=== PATIENT | male | born 1955 | race Two or more races ===

== ENCOUNTER 2016-12-20 12:45 | Emergency (ER) | payer OTHER ==
[~2016-12-20] VITALS: Ht 172.7 cm; Wt 73.9 kg
[2016-12-20 13:04] VITALS: BP 134/87
[2016-12-20] MEDS ORDERED: predniSONE 20 MG TABLET ONE (13:46)
[2016-12-20] MEDS ORDERED: ALBUTEROL FS 2.5 MG/3 ML VIAL.NEB ONE (13:51)
[2016-12-20] MEDS ORDERED: IPRATROPIUM NEB FS 0.5 MG/2.5 ML AMPUL.NEB ONE (13:51)
[2016-12-20] MEDS ORDERED: IPRATROPIUM NEB FS 0.5 MG/2.5 ML AMPUL.NEB NEB ONE (14:00)
[2016-12-20] MEDS ORDERED: predniSONE 20 MG TABLET PO ONE (14:00)
[2016-12-20] MEDS ORDERED: ALBUTEROL FS 2.5 MG/3 ML VIAL.NEB NEB ONE (14:00)
== END 2016-12-20 14:13 | disposition home or self-care (01) ==
LOC: ER 12:46
DX: J11.1 Influenza due to unidentified influenza virus with other respiratory manifestations (principal)
CPT/HCPCS: A4606; Z7610

== ENCOUNTER 2022-09-11 12:08 | Outpatient (CLI) | payer MEDICARE, BC ==
[2022-09-19] MEDS ORDERED: PANT40TA2 PO (07:36)
[2022-09-19] MEDS ORDERED: HYDR-3972 PO (07:36)
== END 2022-09-11 23:59 | disposition home or self-care (01) ==
LOC: LAB 12:08
PROVIDERS: ATTEND Specialist
DX: Z01.812 Encounter for preprocedural laboratory examination (principal); Z20.822 Contact with and (suspected) exposure to COVID-19
CPT/HCPCS: U0003; C9803

== ENCOUNTER 2022-09-17 04:58 | Inpatient (IN) | payer MEDICARE, BC ==
[~2022-09-17] VITALS: Ht 172.7 cm; Wt 72.6 kg
[2022-09-17 05:15] VITALS: BP 119/75
--- NOTE | 2022-09-17 06:00 | NUR ---
RN DAYSURGERY NOTE PATIENT CAME FROM HOME WITH FAMILY, PATIENT IS A/O X 4, ABLE TO MAKE NEEDS KNOWN. ON RA, TOLERATING WELL. PROCEDURE CONSENT, BLOOD TRANSFUSION CONSENT, AND ANESTHESIA CONSENT SIGNED AND WITNESSED. SURGICAL CHECKLIST DONE. RFA 20 G IV ACCESS ESTABLISHED. BELONGINGS INVENTORIED. VITAL SIGNS: BP 119/75, HR 49, RESP 18, TEMP 97.4, O2 100%. PATIENT NOT IN ANY APPARENT DISTRESS. PATIENT WITH OR NURSE, ANESTHESIOLOGIST AT BEDSIDE. PATIENT TAKEN DOWN TO OR. Addendum: 09/17/22 at 0613 by COURTNEY MYERS RN CONFIRMED HOME MEDS WITH PATIENT, PER PATIENT HE DOES NOT TAKE ANY MEDS NOW. COVID VACCINES X 3, AND FLU SHOT WAS RECEIVED JUL 2022.
[2022-09-17] MEDS ORDERED: POLYMYXIN B SULFATE 500,000 UNITS ONE (06:13)
[2022-09-17] MEDS ORDERED: BUPIVACAINE 0.5 % PF 150 MG/30 ML VIAL ONE (06:13)
[2022-09-17] MEDS ORDERED: HYDROMORPHONE INJ 2 MG/ML DISP.SYRIN ONE (06:27)
[2022-09-17] MEDS ORDERED: FENTANYL PF 100MCG/2ML AMPUL ONE (06:27)
[2022-09-17] MEDS ORDERED: MIDAZOLAM HCL 2 MG/2ML VIAL ONE (06:28)
[2022-09-17] MEDS ORDERED: SUCCINYLCHOLINE CHLORIDE 20 MG/ML VIAL ONE (06:29)
[2022-09-17] MEDS ORDERED: CLINDAMYCIN IV RTU IN D5W 0 ML ONE (07:01)
[2022-09-17] MEDS ORDERED: CLINDAMYCIN IV RTU IN D5W 50 ML ONE (07:04)
[2022-09-17] MEDS ORDERED: TRANEXAMIC ACID 3,000 MG in SODIUM CHLORIDE IRRIG SOLUTION 70 ML IR ONE (07:15)
--- NOTE | 2022-09-17 07:15 | NUR ---
RN OPENING NOTE PATIENT WENT FOR SURGERY, PATIENT IS NOT IN HIS ROOM, RECEIVED REPORT FROM [employer] FIELD DATA COLLECTOR NURSE.
[2022-09-17] MEDS ORDERED: MEPERIDINE25 MG SYR 25 MG/ML VIAL ONE (09:23)
[2022-09-17] MEDS ORDERED: ACETAMINOPHEN 325 MG TABLET PO PRN (09:30)
[2022-09-17] MEDS ORDERED: BISACODYL SUPP (10 MG) 10 MG/SUPP.RECT SUPP.RECT RC PRN (09:30)
[2022-09-17] MEDS ORDERED: DOCUSATE SODIUM 250 MG CAPSULE PO PRN (09:30)
[2022-09-17] MEDS ORDERED: HYDROCODONE/APAP 5/325MG TABLET PO PRN (09:30)
[2022-09-17] MEDS ORDERED: SENNOSIDES 8.6 MG TABLET PO PRN (09:30)
[2022-09-17] MEDS ORDERED: CLONIDINE HCL 0.1 MG TABLET PO PRN (10:30)
[2022-09-17] MEDS ORDERED: MAGNESIUM HYDROXIDE 30 ML UDC PO PRN (10:30)
[2022-09-17] MEDS ORDERED: diphenhydrAMINE HCL 25 MG CAPSULE PO PRN (10:30)
[2022-09-17] MEDS ORDERED: DRONABINOL (2.5 MG) 2.5 MG CAPSULE PO ONE (10:41)
--- NOTE | 2022-09-17 10:45 | NUR ---
RN NOTE PATIENT IS IN ROOM RESTING, BACK FROM SURGERY (RIGHT KNEE ARTHROPLASTY WITH DOCTOR AIDAN). V/S TAKEN AND STABLE. PATIENT TOLERATED PROCEDURE WELL. WILL CONTINUE TO MONITOR.
[2022-09-17 11:00] VITALS: BP 123/67
[2022-09-17] MEDS ORDERED: MAG HYDROX/AL HYDROX/SIMETH 30 ML UDC PO PRN (11:00)
[2022-09-17] MEDS: MORPHINE SULFATE INJ 4 MG/ML DISP.SYRIN IM PRN ×2 (11:59→16:32)
[2022-09-17] MEDS: ONDANSETRON HCL/PF 4 MG/2 ML VIAL IV PRN (12:06)
[2022-09-17] MEDS ORDERED: ASPI-1169 PO (12:09)
[2022-09-17] MEDS ORDERED: METO-357 PO (12:09)
[2022-09-17] MEDS ORDERED: DICL100G34 TD (12:10)
[2022-09-17] MEDS: IV D5/0.45 NACL 500 ML IV PRN ×3 (12:27→22:27)
[2022-09-17] MEDS: HYDROCODONE/APAP 10/325MG TABLET PO PRN ×2 (14:11→18:07)
[2022-09-17 16:00] VITALS: BP 115/74
[2022-09-17] MEDS: ANCEF 1 GM/50 ML D5W IV SCH ×2 (16:31)
[2022-09-17] MEDS: DOCUSATE SODIUM 100 MG CAPSULE PO SCH (16:31)
[2022-09-17] MEDS ORDERED: DICLOFENAC TOPICAL 100 GM GEL..GM. TP SCH (17:00)
--- NOTE | 2022-09-17 18:52 | NUR ---
RN CLOSING NOTE PATIENT AWAKE IN BED RESTING A/O X 4. 4/10 PAIN LEVEL, PAIN MEDICATION GIVEN DURING THE SHIFT. ON 3L OXYGEN VIA NC, NO DISTRESS OR SHORTNESS OF BREATH NOTED. IV ACCESS RFA #20G, INTACT, PATENT AND FLUSHING WELL. PATIENT HAVE A ESPARZA CATHETER, IN PLACE AND DRAINING WELL, OUTPUT 1000ML. SCHEDULE MEDICATIONS ADMINISTERED. FALL AND SAFETY MEASURES IN PLACE, BED ALARM ON, BED IN LOW AND LOCK POSITION, CALL LIGHT AND TABLE WITHIN EASY REACH, SIDE RAILS X2. WILL ENDORSE TO MOLTEN IRON POURER.
[2022-09-17 20:00] VITALS: BP 125/76
--- NOTE | 2022-09-17 20:13 | NUR ---
RN OPENING NOTE PATIENT AWAKE IN BED RESTING A/O X 4. ON 2L OXYGEN VIA NC, NO DISTRESS OR SHORTNESS OF BREATH NOTED. IV ACCESS RFA #20G, INTACT, PATENT AND FLUSHING WELL. PATIENT HAVE A ESPARZA CATHETER, IN PLACE AND DRAINING WELL. NO COMPLAINS OF PAIN AT THIS TIME. FALL AND SAFETY MEASURES IN PLACE, BED ALARM ON, BED IN LOW AND LOCK POSITION, CALL LIGHT AND TABLE WITHIN EASY REACH, SIDE RAILS X2. WILL CONTINUE TO MONITOR.
[2022-09-17] MEDS: TAMSULOSIN 0.4 MG CAP.SR.24H PO SCH (21:23)
[2022-09-17] MEDS: FAMOTIDINE (20 MG) 20 MG TABLET PO SCH (21:24)
[2022-09-17] MEDS: DRONABINOL (2.5 MG) 2.5 MG CAPSULE PO SCH (21:24)
[2022-09-17] MEDS: ZOLPIDEM TARTRATE 5 MG TABLET PO PRN (22:17)
--- NOTE | 2022-09-17 22:18 | NUR ---
RN NOTES - PATIENT REQUESTED SLEEPING PILL. GIVEN AMBIEN 5MG PRN FOR SLEEP. PROVIDED WARM COMFORTABLE ENVIRONMENT.
[2022-09-18] MEDS: ANCEF 1 GM/50 ML D5W IV SCH ×2 (00:23)
[2022-09-18] MEDS: HYDROCODONE/APAP 10/325MG TABLET PO PRN ×2 (04:02→16:35)
[2022-09-18 06:03] LABS: BASOPHILS % (AUTO) 0.1 % (0.0-2.0); EOSINOPHILS % (AUTO) 0.3 % (0.0-6.0); HEMATOCRIT 35 % (39-51); HEMOGLOBIN 11.2 g/dL (13.5-17.5); LYMPHOCYTES # (AUTO) 0.9 K/uL (0.8-4.8); LYMPHOCYTES % (AUTO) 5.4 % (20.0-44.0); MEAN CORPUSCULAR HGB CONC 32 g/dl (31.0-36.0); MEAN CORPUSCULAR VOLUME 79 fL (80-96); MONOCYTES # (AUTO) 1.4 K/uL (0.1-1.30); MONOCYTES % (AUTO) 8.7 % (2.0-12.0); NEUTROPHILS # (AUTO) 13.7 K/uL (1.8-8.9); NEUTROPHILS % (AUTO) 85.5 % (43.0-81.0); PLATELET COUNT (AUTO) 149 K/uL (150-450); RED BLOOD CELL COUNT(AUTO) 4.39 MIL/uL (4.5-6.0)
[2022-09-18] MEDS: MORPHINE SULFATE INJ 4 MG/ML DISP.SYRIN IM PRN ×2 (06:16→11:48)
--- NOTE | 2022-09-18 06:23 | NUR ---
RN NOTES - PATIENT IS COMPLAINING OF PAIN AT RIGHT LEG, RATED PAIN 8/10. GIVEN MORPHINE 4MG PRN ORDERED. FOLLOWED UP PHYSICAL THERAPIST, THE PATIENT WANTS TO GET OUT OF BED TO AMBULATE EARLY POSSIBLE. KEPT COMFORTABLE.
[2022-09-18 06:34] LABS: ALBUMIN 2.8 g/dL (3.4-5.0); BILIRUBIN,TOTAL 0.8 mg/dL (0.2-1.0); CALCIUM, SERUM 8.4 mg/dL (8.5-10.1); CREATININE 0.9 mg/dL (0.6-1.3); POTASSIUM 3.7 mmol/L (3.5-5.1); TOTAL PROTEIN, SERUM 6.2 g/dL (6.4-8.2)
--- NOTE | 2022-09-18 07:50 | NUR ---
RN CLOSING NOTE PATIENT AWAKE IN BED RESTING A/O X 4. 7/10 PAIN LEVEL, PAIN MEDICATION GIVEN DURING THE SHIFT. ON ROOM AIR, SATURATING WELL. NO DISTRESS OR SHORTNESS OF BREATH NOTED. IV ACCESS RFA #20G, INTACT, PATENT AND FLUSHING WELL. PATIENT HAVE A ESPARZA CATHETER, IN PLACE AND DRAINING WELL, OUTPUT 1300ML. SCHEDULE MEDICATIONS ADMINISTERED. FALL AND SAFETY MEASURES IN PLACE, BED ALARM ON, BED IN LOW AND LOCK POSITION, CALL LIGHT AND TABLE WITHIN EASY REACH, SIDE RAILS X2. WILL ENDORSE TO DAY SHIFT.
[2022-09-18 08:00] VITALS: BP 130/75
[2022-09-18] MEDS: HYDROMORPHONE 1 MG/1 ML DISP.SYRIN IM/IV/SC PRN ×2 (08:33→12:03)
[2022-09-18] MEDS ORDERED: ASPIRIN 81 MG TAB.CHEW PO SCH (09:00)
[2022-09-18] MEDS ORDERED: ASPIRIN 325 MG TABLET PO SCH (09:00)
[2022-09-18] MEDS: METOPROLOL SUCCINATE 50 MG TAB.SR.24H PO SCH (10:18)
[2022-09-18] MEDS: FAMOTIDINE (20 MG) 20 MG TABLET PO SCH ×2 (10:18→21:28)
[2022-09-18] MEDS: DOCUSATE SODIUM 100 MG CAPSULE PO SCH ×2 (10:19→16:35)
[2022-09-18] MEDS: ONDANSETRON HCL/PF 4 MG/2 ML VIAL IV PRN (12:17)
[2022-09-18 16:00] VITALS: BP 124/70
--- NOTE | 2022-09-18 19:09 | NUR ---
RN CLOSING NOTE PATIENT IN BED RESTING A/O X 4. PAIN MEDICATION GIVEN THROUGHOUT SHIFT, NO PAIN NOTED AT THIS TIME. BREATHING ON ROOM AIR, SATURATING WELL. NO DISTRESS OR SHORTNESS OF BREATH NOTED. IV ACCESS RFA #20G SL INTACT, PATENT AND FLUSHING WELL. ALL FALL AND SAFETY MEASURES IN PLACE, BED ALARM ON, BED IN LOW AND LOCK POSITION, CALL LIGHT AND TABLE WITHIN REACH, SIDE RAILS X2. WILL ENDORSE CONTINUITY OF CARE TO BAKER PAINT NURSE.
--- NOTE | 2022-09-18 19:45 | NUR ---
RN OPENING NOTES RECEIVED PT IN BED, AWAKE. AO x4, ABLE TO MAKE NEEDS KNOWN. ON RA AND TOLERATING WELL. NO SOB NOTED.NO S/SX OF RESPIRATORY DISTRESS NOTED. IV ACCESS IN RFA #20G. IV IS INTACT, PATENT AND FLUSHING WELL. NO COMPLAINTS OF PAIN AT THIS TIME. SAFETY PRECAUTIONS IN PLACE: BED IN LOWEST, LOCKED POSITION, SIDERAILS UPx2, AND BRAKES ON. TABLE AND CALL LIGHT WITHIN REACH. ALL NEEDS MET AT THIS TIME.
[2022-09-18 20:00] VITALS: BP 130/67
[2022-09-18] MEDS: DRONABINOL (2.5 MG) 2.5 MG CAPSULE PO SCH (21:28)
[2022-09-18] MEDS: ZOLPIDEM TARTRATE 5 MG TABLET PO PRN (21:28)
[2022-09-18] MEDS: TAMSULOSIN 0.4 MG CAP.SR.24H PO SCH (21:28)
--- NOTE | 2022-09-18 21:28 | NUR ---
RN NOTES ADMINISTERED AMBIEN PER PT REQUEST.
--- NOTE | 2022-09-18 21:34 | NUR ---
RN NOTES PATIENT REFUSED DRONABINOL SINCE HE IS NOT NAUSEOUS.
--- NOTE | 2022-09-19 03:09 | NUR ---
RN NOTES WENT TO ROUND ON PATIENT AND PATIENT WAS GETTING BACK INTO BED BY HIMSELF. SAID "I WENT TO THE BATHROOM." PT AWARE OF BEDPAN USAGE. AOx4 AND DID NOT USE CALL LIGHT FOR HELP TO GO TO THE BATHROOM OR TO GET BEDPAN. REFUSED HELP GETTING BACK INTO BED.
--- NOTE | 2022-09-19 06:57 | NUR ---
RN CLOSING NOTES PT IN BED, ASLEEP, AWAKENS TO VERBAL STIMULI. AO x4, ABLE TO MAKE NEEDS KNOWN. ON RA AND TOLERATING WELL. NO SOB NOTED.NO S/SX OF RESPIRATORY DISTRESS NOTED. IV ACCESS IN RFA #20G. IV IS INTACT, PATENT AND FLUSHING WELL. NO COMPLAINTS OF PAIN THROUGHOUT SHIFT. ALL ORDERS CARRIED OUT. ALL NEEDS MET. PT KEPT CLEAN AND DRY. SAFETY PRECAUTIONS IN PLACE: BED IN LOWEST, LOCKED POSITION, SIDERAILS UPx2, AND BRAKES ON. TABLE AND CALL LIGHT WITHIN REACH. WILL ENDORSE TO ONCOMING SHIFT FOR ELEAZAR.
--- NOTE | 2022-09-19 07:35 | NUR ---
RN OPENING NOTES PT IN BED AWKE, AO x4, ABLE TO MAKE NEEDS KNOWN. ON RA AND TOLERATING WELL. NO SOB NOTED.NO S/SX OF RESPIRATORY DISTRESS NOTED. IV ACCESS IN RFA #20G. IV IS INTACT, PATENT AND FLUSHING WELL. NO COMPLAINTS OF PAIN THROUGHOUT SHIFT. ALL ORDERS CARRIED OUT. PATIENT STATED HE WANTED TO GO HOME TODAY. SAFETY PRECAUTIONS IN PLACE: BED IN LOWEST, LOCKED POSITION, SIDERAILS UPx2, AND BRAKES ON. TABLE AND CALL LIGHT WITHIN REACH.
[2022-09-19] MEDS ORDERED: HYDR-3972 PO (07:36)
[2022-09-19] MEDS ORDERED: PANT40TA2 PO (07:36)
[2022-09-19 08:51] VITALS: BP 147/73
[2022-09-19] MEDS: DOCUSATE SODIUM 100 MG CAPSULE PO SCH (08:51)
[2022-09-19] MEDS: METOPROLOL SUCCINATE 50 MG TAB.SR.24H PO SCH (08:51)
[2022-09-19] MEDS: FAMOTIDINE (20 MG) 20 MG TABLET PO SCH (08:52)
[2022-09-19] MEDS: HYDROCODONE/APAP 10/325MG TABLET PO PRN (09:15)
--- NOTE | 2022-09-19 10:22 | NUR ---
DISCHARGED NOTE DISCHARGED NOTE PATIENT DISCHARGED TO HOME IN STABLE CONDITION. A/OX4. SEEN BY DOCTOR BANERJEE WITH A DISCHARGED ORDER. MORNING MEDS GIVEN. VITALS TAKEN, STABLE AND RECORDED. PATIENT'S SKIN INTACT. IV LINE REMOVED, NO ACTIVE BLEEDING NOTED. ALL BELONGINGS ACCOUNTED TO THE PATIENT. DISCHARGED INSTRUCTION GIVEN AND VERBALIZED UNDERSTANDING BY THE PATIENT. DISCHARGED.
== END 2022-09-19 10:15 | disposition home health service (06) | DRG 470 ==
LOC: DS 04:58 → MED 05:01
PROVIDERS: ADMIT Nurse Practitioner Acute Care; ATTEND Nurse Practitioner Acute Care
PROC: 0SRC0J9 Replacement of Right Knee Joint with Synthetic Substitute, Cemented, Open Approach (ICD-10-PCS; principal; 2022-09-17)
DX: M17.11 Unilateral primary osteoarthritis, right knee (principal); D68.59 Other primary thrombophilia; Z20.822 Contact with and (suspected) exposure to COVID-19; I12.9 Hypertensive chronic kidney disease with stage 1 through stage 4 chronic kidney disease, or unspecified chronic kidney disease; N18.9 Chronic kidney disease, unspecified; Z86.73 Personal history of transient ischemic attack (TIA), and cerebral infarction without residual deficits; M19.90 Unspecified osteoarthritis, unspecified site; Z98.890 Other specified postprocedural states; F12.90 Cannabis use, unspecified, uncomplicated; Z79.82 Long term (current) use of aspirin; Z79.899 Other long term (current) drug therapy; N40.0 Benign prostatic hyperplasia without lower urinary tract symptoms; I25.2 Old myocardial infarction; E03.9 Hypothyroidism, unspecified; I25.10 Atherosclerotic heart disease of native coronary artery without angina pectoris; M54.9 Dorsalgia, unspecified; S46.009A Unspecified injury of muscle(s) and tendon(s) of the rotator cuff of unspecified shoulder, initial encounter; X58.XXXA Exposure to other specified factors, initial encounter; Y92.9 Unspecified place or not applicable; D50.9 Iron deficiency anemia, unspecified; D69.6 Thrombocytopenia, unspecified; Z87.891 Personal history of nicotine dependence
CPT/HCPCS: 36415; 80053-TC; 85025-TC; 85027-TC; 86850-TC; 87081-TC; 97116-TC; 97530-TC; 97760-TC; A4217; C1713; C1776; G0378; J0330; J0461; J0690; J1170; J2175; J2250; J2270; J2405; J2704; J2765; J3010; J3490; J7030; J7060; L1830; Q0167